=== PATIENT | male | born 1990 | race Caucasian/White ===

== ENCOUNTER 2018-04-21 23:26 | Emergency (ER) | payer MEDICAID ==
[~2018-04-21] VITALS: Ht 180.3 cm; Wt 59.1 kg
[2018-04-21 23:28] VITALS: Ht 180.3 cm; Wt 59.1 kg
[2018-04-21] MEDS ORDERED: TRILEPTAL300 MG PO (23:33)
[2018-04-21] MEDS ORDERED: PROPRANOLOL HCL20 MG PO (23:34)
[2018-04-21] MEDS ORDERED: ZOLOFT50 MG (23:34)
[2018-04-21] MEDS ORDERED: BUPRENORPHIN-N1 EACH SL (23:34)
[2018-04-22 01:19] VITALS: BP 132/86
== END 2018-04-22 01:16 ==
LOC: D.ER 23:26
DX: F41.9 Anxiety disorder, unspecified (principal); F12.90 Cannabis use, unspecified, uncomplicated; R25.1 Tremor, unspecified; F17.200 Nicotine dependence, unspecified, uncomplicated

== ENCOUNTER 2018-04-27 21:47 | Emergency (ER) | payer MEDICAID ==
[~2018-04-27] VITALS: Ht 180.3 cm; Wt 60.5 kg
[~2018-04-27 21:47] MED LIST: BUPRENORPHIN-N1 EACH SL; PROPRANOLOL HCL20 MG PO; TRILEPTAL300 MG PO; ZOLOFT50 MG
[2018-04-27 21:55] VITALS: Ht 180.3 cm; Wt 60.5 kg
[2018-04-27] MEDS ORDERED: TRILEPTAL300 MG PO (22:40)
[2018-04-27 23:43] VITALS: BP 162/82
== END 2018-04-27 23:44 | disposition home or self-care (01) ==
LOC: D.ER 21:47
DX: Z76.0 Encounter for issue of repeat prescription (principal); F17.200 Nicotine dependence, unspecified, uncomplicated